=== PATIENT | female | born 1990 | race Caucasian/White ===

== ENCOUNTER → 2016-12-17 | Outpatient (CLI) | payer MEDICARE, MEDICAID ==
--- NOTE | 2017-01-04 23:57 | CT ---
EXAM: CT lumbar spine without contrast. INDICATION: Trauma. Lumbar pain. TECHNIQUE: Contiguous axial CT images of the lumbar spine.Intravenous contrast: Absent.Reformats: MPRs created and utilized.DLP 558 mGy-cm. COMPARISON: None. FINDINGS: Alignment: Preserved. Fracture: No acute fracture or subluxation. Spondylosis: None. Other: The visualized portions of the kidneys are unremarkable. The abdominal aorta is normal in caliber. Tubal ligation clips are noted. No evidence of spondylolysis. IMPRESSION: 1. No CT evidence of acute osseous injury of the lumbar spine. Electronically signed by: Marcelo Smith MD 12/18/2016 4:14 AM WET CHEMISTRY ANALYST
== END | disposition home or self-care (01) ==
LOC: CT 14:50
PROVIDERS: ATTEND Neurological Surgery
DX: M47.896 Other spondylosis, lumbar region (principal)

== ENCOUNTER → 2017-02-18 | Outpatient (CLI) | payer MEDICARE, MEDICAID | LOC: GMAM 17:40 | PROVIDERS: ATTEND Family Medicine | DX: E03.9 Hypothyroidism, unspecified (principal); Z79.899 Other long term (current) drug therapy ==

== ENCOUNTER → 2017-03-02 | Outpatient (CLI) | payer MEDICARE, MEDICAID | END | disposition home or self-care (01) | LOC: GMAM 17:23 | PROVIDERS: ATTEND Family Medicine | DX: R11.0 Nausea (principal) ==

== ENCOUNTER → 2017-03-05 | Outpatient (CLI) | payer MEDICARE, MEDICAID | LOC: GMAM 16:36 | PROVIDERS: ATTEND Family Medicine | DX: R80.1 Persistent proteinuria, unspecified (principal) ==

== ENCOUNTER → 2017-11-24 | Outpatient (CLI) | payer MEDICARE, MEDICAID | END | disposition home or self-care (01) | LOC: GMAM 16:36 | PROVIDERS: ATTEND Family Medicine | DX: D50.8 Other iron deficiency anemias (principal) ==

== ENCOUNTER → 2018-01-04 | Outpatient (CLI) | payer MEDICARE, MEDICAID | LOC: GMAM 16:50 | PROVIDERS: ATTEND Family Medicine | DX: R23.3 Spontaneous ecchymoses (principal) ==

== ENCOUNTER → 2018-02-03 | Outpatient (CLI) | payer MEDICARE, MEDICAID | LOC: GMAM 16:46 | PROVIDERS: ATTEND Family Medicine | DX: D64.9 Anemia, unspecified (principal) ==

== ENCOUNTER → 2018-03-08 | Outpatient (CLI) | payer MEDICARE, MEDICAID | LOC: GMAM 18:20 | PROVIDERS: ATTEND Family Medicine | DX: D64.9 Anemia, unspecified (principal) ==